=== PATIENT | male | born 1950 | race Caucasian/White ===

== ENCOUNTER 2017-01-24 16:35 | Inpatient (IN) | payer MEDICARE, MEDICAID ==
[~2017-01-24] VITALS: Ht 175.3 cm; Wt 122.0 kg
[~2017-01-24 16:35] MED LIST: ATOR20TA PO; DILT360T13 PO; FLUT1DIS3 INH; FURO-145 PO; VALP100V3 IV
--- NOTE | 2017-01-24 16:40 | NUR ---
BIB [facility] FROM HOME, ON & OFF CHEST PAIN SINCE YESTERDAY, [facility] PT AAOX3. COMPLAINS OF NON RADIATING CHEST PAIN AND ABDOMINAL PAIN. SEEN BY MD FOR EVAL. SAFETY AND COMFORT MEASURES PROVIDED. WILL MONITOR.
[2017-01-24] MEDS ORDERED: ONDANSETRON HCL/PF 4 MG/2 ML VIAL ONE (16:49)
[2017-01-24] MEDS ORDERED: NITROGLYCERIN 0.4 MG/TAB BOTTLE ONE (16:49)
[2017-01-24] MEDS ORDERED: MORPHINE SULFATE INJ 4 MG/ML DISP.SYRIN ONE (16:49)
[2017-01-24] MEDS ORDERED: ASPIRIN 81 MG TAB.CHEW ONE (16:49)
[2017-01-24] MEDS ORDERED: NITROGLYCERIN 0.4 MG/TAB BOTTLE SL ONE (17:00)
[2017-01-24] MEDS ORDERED: ASPIRIN 81 MG TAB.CHEW PO ONE (17:00)
[2017-01-24] MEDS ORDERED: ONDANSETRON HCL/PF 4 MG/2 ML VIAL IVP ONE (17:00)
[2017-01-24] MEDS ORDERED: MORPHINE SULFATE INJ 2 MG/ML DISP.SYRIN IV ONE (17:00)
--- NOTE | 2017-01-24 17:06 | NUR ---
IV ACCESS STARTED. BLOOD DRAWN FOR LABS. PT MEDICATED ORDERE.
[2017-01-24 17:07] LABS: BASOPHILS % (AUTO) 0.4 % (0.0-2.0); EOSINOPHILS # (AUTO) 0.1 /CMM (0.0-0.7); EOSINOPHILS % (AUTO) 1.3 % (0.0-6.0); HEMATOCRIT 44 % (39-51); HEMOGLOBIN 14.5 g/dL (13.5-17.5); LYMPHOCYTES # (AUTO) 1.6 /CMM (0.8-4.8); LYMPHOCYTES % (AUTO) 15.8 % (20.0-44.0); MEAN CORPUSCULAR HEMOGLOBIN 29 PG (26.0-33.0); MEAN CORPUSCULAR HGB CONC 33 g/dl (31.0-36.0); MEAN CORPUSCULAR VOLUME 89 fL (80-96); MONOCYTES # (AUTO) 0.8 /CMM (0.1-1.30); MONOCYTES % (AUTO) 7.7 % (2.0-12.0); NEUTROPHILS # (AUTO) 7.4 /CMM (1.8-8.9); NEUTROPHILS % (AUTO) 74.8 % (43.0-81.0); PLATELET COUNT (AUTO) 249 /CMM (150-450); RDW COEFFICIENT OF VARIATION 12.6 (11.5-15.0); RED BLOOD CELL COUNT(AUTO) 5.01 MIL/uL (4.5-6.0); WHITE BLOOD COUNT (AUTO) 9.9 K/uL (4.3-11.0)
[2017-01-24 17:20] LABS: CALCIUM, SERUM 8.7 mg/dL (8.5-10.1); CARBON DIOXIDE 33 mmol/L (21-32); CHLORIDE 107 mmol/L (98-107); GFR 75 mL/min (>60); GLUCOSE 155 mg/dL (74-106); POTASSIUM 4.3 mmol/L (3.5-5.1); SODIUM SERUM 143 mmol/L (136-145); UREA NITROGEN, BLOOD 20 mg/dL (7-18)
[2017-01-24 17:30] LABS: INR 1.05 (0.87-1.13); TROPONIN I < 0.017 ng/mL (0.00-0.056)
[2017-01-24] MEDS ORDERED: METOPROLOL TARTRATE INJ 5 MG/5 ML AMPUL IV ONE (17:30)
[2017-01-24] MEDS ORDERED: METOPROLOL TARTRATE INJ 5 MG/5 ML AMPUL ONE (17:31)
[2017-01-24 17:33] LABS: ALANINE AMINOTRANSFERASE 19 U/L (12-78); ALBUMIN 3.5 g/dL (3.4-5.0); ALKALINE PHOSPHATASE 112 U/L (46-116); ASPARTATE AMINOTRANSFERASE 12 U/L (15-37); B-TYPE NATRIURETIC PEPTIDE 102 PG/ML (0-125); BILIRUBIN,DIRECT 0.1 mg/dL (0.0-0.2); BILIRUBIN,TOTAL 0.5 mg/dL (0.2-1.0); TOTAL PROTEIN, SERUM 6.7 g/dL (6.4-8.2)
[2017-01-24] MEDS ORDERED: IV SET PRIMARY 1 EA INFUS.SET MC ONE (17:34)
[2017-01-24] MEDS ORDERED: IV NS 0.9% 500 ML IV ONE (17:34)
--- NOTE | 2017-01-24 17:40 | NUR ---
Patient is resting comfortably in bed with eyes closed. Easily aroused. VSS
[2017-01-24] MEDS ORDERED: IV NS 0.9% 1,000 ML BAG IV ONE (18:00)
--- NOTE | 2017-01-24 18:20 | NUR ---
REPORT GIVEN TO GIANLUCA SHRESTHA FOR TELE RM 113-1
--- NOTE | 2017-01-24 18:32 | NUR ---
RN EVE NOTES RECEIVED REPORT FROM ER NURSE FLORIN.
--- NOTE | 2017-01-24 18:42 | NUR ---
DR. MYERS AT FOR EVAL.
[2017-01-24] MEDS ORDERED: VALPROATE 500 MG/5 ML VIAL IV SCH (19:00)
[2017-01-24] MEDS ORDERED: MENT1LOZ MM (19:06)
[2017-01-24] MEDS ORDERED: DILT-46 PO (19:06)
[2017-01-24] MEDS ORDERED: ALFU10TA10 PO (19:06)
[2017-01-24] MEDS ORDERED: LEVA0.6320 IH (19:06)
[2017-01-24] MEDS ORDERED: DOCU250C75 PO (19:06)
[2017-01-24] MEDS ORDERED: ASPI81TA2 PO (19:06)
[2017-01-24] MEDS ORDERED: QUET50TA PO (19:06)
[2017-01-24] MEDS ORDERED: GABA-534 PO (19:06)
[2017-01-24] MEDS ORDERED: KETO15CR TP (19:06)
[2017-01-24] MEDS ORDERED: CYCL5TAB PO (19:07)
--- NOTE | 2017-01-24 19:14 | NUR ---
TRANSFERRED PT TO TELE 1
--- NOTE | 2017-01-24 19:15 | NUR ---
RN- PT CAME IN FROM ER W/ DX OF CHEST PAIN. CO SHARP MIDSTERNAL CHEST PAIN UPON ER ADMISSION. DENIES CP AT THIS TIME. DENIES SOB. ON MONITOR W/ ST- 103. O2 SAT 93 ON RA. PT REFUSED O2 NC. INFORMED PT THAT DUE TO HIS DX, HE NEEDS OXYGEN TO PROPERLY PERFUSE HIS HEART. PT STILL REFUSED. ORIENTED PT TO UNIT. CALL LIGHT W/ IN REACH. BED LOW AND IN LOCKED POSITION. WILL MONITOR PT ACCORDINGLY.
[2017-01-24 20:00] VITALS: BP 126/87
[2017-01-24 20:19] LABS: MAGNESIUM 1.7 mg/dL (1.8-2.4); PHOSPHORUS 3.5 mg/dL (2.5-4.9)
[2017-01-24 20:29] LABS: THYROID STIMULATING HORMONE 1.031 uIU/mL (0.358-3.74)
--- NOTE | 2017-01-24 20:30 | NUR ---
EVE/RN- CALLED DR TABARES AND FOLLOWED UP ON ADMITTING ORDERS. PER HOSPITALIST HE IS ON THE ROAD AND WILL DO THE ADMITTING ORDERS SOON HE GETS HOME. WILL WAIT FOR ORDERS.
[2017-01-24 21:00] VITALS: BP 126/87
[2017-01-24] MEDS: ENOXAPARIN SODIUM 40 MG/0.4 ML DISP.SYRIN SQ SCH (21:26)
--- NOTE | 2017-01-24 22:00 | NUR ---
EVE/RN- CALLED [facility]. SPOKE WITH DR SAEED. EXPLAINED THE NEED FOR ADMITTING ORDERS. STATED THAT HE WILL CONTACT DR TABARES AND FOLLOW UP ON THE ORDERS. WILL WAIT FOR ADMITTING ORDERS.
[2017-01-25] VITALS: BP 113/60
--- NOTE | 2017-01-25 00:28 | NUR ---
EVE/RN- FOLLOWED UP ADMITTING ORDERS W/ [facility]. SPOKE WITH DR SAEED. MD STATED THAT HE HAS INFORMED DR TABARES ABOUT ADMITTING ORDERS AND THAT HE IS IN THE PROCESS OF PUTTING IN ORDERS AT THIS TIME. AWAITING ADMITTING ORDERS. INFORMED ABOUT PT'S CO CHEST PAIN OF 10/10 SHARP MIDSTERNAL AND NON RADIATING. NO CHANGES IN VITAL SIGNS NOTED. ON MONITOR PT IS [id number]. NON DIAPHORETIC. ORDERED TO GIVE MORPHINE 2 MG IVP Q 6 HRS PRN FOR PAIN. WILL MEDICATE ORDERED.
[2017-01-25] MEDS ORDERED: MORPHINE SULFATE INJ 2 MG/ML DISP.SYRIN IV PRN (00:30)
[2017-01-25] MEDS ORDERED: MORPHINE SULFATE INJ 2 MG/ML DISP.SYRIN ONE (00:34)
--- NOTE | 2017-01-25 00:46 | NUR ---
EVE/RN- PT REFUSED MORPHINE MEDICATION. SPOKE WITH DR CHRISTOPHE MD ORDERED TO GIVE NORCO 1 TAB 5/325MG Q 6 HRS PRN FOR PAIN. ORDERS CARRIED OUT.
[2017-01-25] MEDS ORDERED: HYDROCODONE/APAP 5/325MG 1 EACH TABLET ONE (01:25)
[2017-01-25] MEDS: HYDROCODONE/APAP 5/325MG 1 EACH TABLET PO PRN ×3 (01:30→16:11)
[2017-01-25 04:00] VITALS: BP 120/87
[2017-01-25 06:56] LABS: EOSINOPHILS # (AUTO) 0.1 /CMM (0.0-0.7); EOSINOPHILS % (AUTO) 1.7 % (0.0-6.0); HEMATOCRIT 43 % (39-51); HEMOGLOBIN 14.4 g/dL (13.5-17.5); LYMPHOCYTES % (AUTO) 24.9 % (20.0-44.0); MEAN CORPUSCULAR HEMOGLOBIN 30 PG (26.0-33.0); MEAN CORPUSCULAR HGB CONC 34 g/dl (31.0-36.0); MEAN CORPUSCULAR VOLUME 89 fL (80-96); MONOCYTES # (AUTO) 0.9 /CMM (0.1-1.30); MONOCYTES % (AUTO) 11.3 % (2.0-12.0); NEUTROPHILS # (AUTO) 5.1 /CMM (1.8-8.9); NEUTROPHILS % (AUTO) 62.1 % (43.0-81.0); PLATELET COUNT (AUTO) 244 /CMM (150-450); RDW COEFFICIENT OF VARIATION 13.4 (11.5-15.0); RED BLOOD CELL COUNT(AUTO) 4.82 MIL/uL (4.5-6.0); WHITE BLOOD COUNT (AUTO) 8.1 K/uL (4.3-11.0)
[2017-01-25 07:42] LABS: ALANINE AMINOTRANSFERASE 22 U/L (12-78); ALBUMIN 3.3 g/dL (3.4-5.0); ALKALINE PHOSPHATASE 113 U/L (46-116); ASPARTATE AMINOTRANSFERASE 8 U/L (15-37); BILIRUBIN,TOTAL 0.5 mg/dL (0.2-1.0); CALCIUM, SERUM 8.6 mg/dL (8.5-10.1); CARBON DIOXIDE 31 mmol/L (21-32); CHLORIDE 106 mmol/L (98-107); CREATININE 0.7 mg/dL (0.6-1.3); GFR 113 mL/min (>60); GLUCOSE 101 mg/dL (74-106); MAGNESIUM 1.6 mg/dL (1.8-2.4); PHOSPHORUS 3.7 mg/dL (2.5-4.9); POTASSIUM 4.3 mmol/L (3.5-5.1); SODIUM SERUM 143 mmol/L (136-145); TOTAL PROTEIN, SERUM 6.9 g/dL (6.4-8.2); UREA NITROGEN, BLOOD 23 mg/dL (7-18)
[2017-01-25 07:43] LABS: TROPONIN I < 0.017 ng/mL (0.00-0.056)
--- NOTE | 2017-01-25 07:48 | NUR ---
RN INITIAL NOTE, PT RECEIVED SITTING IN WHEELCHAIR. AWAKE, ALERT AND ORIENTED. ABLE TO MAKE NEEDS KNOWN. NO S/S OF RESPIRATORY DISTRESS OR SOB. RESPIRATIONS EVEN AND UNLABORED. SINUS TACH0 ON TELE. LEFT AC IV, FLUSHED AND PATENT. DRESSING C/D/I. NO S/S OF PAIN OR DISCOMFORT. SAFETY MEASURES IN PLACE. NO SKIN ISSUES. CALL LIGHT WITHIN REACH. WILL CONTINUE TO MONITOR.
[2017-01-25 08:00] VITALS: BP 133/90
[2017-01-25] MEDS: FLUTICASONE/SALMETEROL DISKUS IH SCH ×2 (08:10→16:11)
[2017-01-25] MEDS: ASPIRIN 81 MG TAB.CHEW PO SCH (08:11)
[2017-01-25] MEDS: ATORVASTATIN 10 MG TABLET PO SCH (08:11)
[2017-01-25] MEDS: PANTOPRAZOLE 40 MG TABLET.DR PO SCH (08:11)
[2017-01-25] MEDS: DILTIAZEM HCL CD 120 MG PO SCH (08:11)
[2017-01-25] MEDS: VALPROATE 500 MG in IV D5W 100 ML IV SCH ×2 (08:14→16:09)
[2017-01-25] MEDS ORDERED: IV SET PRIMARY PUMP SET 1 EA INFUS.SET MC ONE ×3 (08:56→10:52)
--- NOTE | 2017-01-25 09:00 | NUR ---
RN NOTE PT REQUESTING EYE DROPS AND TO SPEAK TO MULTI PUNCH OPERATOR REGARDING DISCUSSING PLACEMENT. ORDERS PLACED.
[2017-01-25] MEDS: POLYVINYL ALCOHOL 15 ML BOTTLE EACHEYE PRN (09:14)
--- NOTE | 2017-01-25 10:55 | NUR ---
SW received a call from pt. stating he needs to speak to SW regarding placement. Per ED report, pt. is a 66 year old male who came to [facility] complaining of chest pain. [facility] without [facility]. JESUS and major case detective Blaze met with pt. bedside. Pt. was sitting in his wheelchair bedside and watching TV. Pt. appeared anxious and evasive with providing information to JESUS and Blaze. SW inquired with pt. regarding where he resides. Pt. was unable to provide a definite answer. Pt. stated he lives at a [facility] and was not able to state the name or address of the board and [facility]. Pt. stated "in [place] somewhere." Pt. states he receives approximately $1000/month in SSI benefits. Pt. informed SW he went to the [place] this morning complaining of chest pain and wanting some pain medication. However, the hospital refused to give pt. pain meds and pt. left the hospital stating, " I will go to another hospital." Pt. then came to [facility]. Pt. became agitated with JESUS and major case detective during the assessment and stated," go away, you are asking me too many questions, I need my pain meds." JESUS and Blaze spoke to FADY Guillen and updated her regarding SW's conversation with pt. JESUS gave Mindy phone number to [employer] office to give to pt. per his request. JESUS and Blaze were unable to discuss discharge plan with pt. due to his aggressive behavior. JESUS requested FADY Guillen to place an order for psych consult.
[2017-01-25] MEDS: Magnesium 1GM/D5W 100ML PREMIX 100 ML IV SCH ×2 (10:56→12:03)
--- NOTE | 2017-01-25 11:00 | NUR ---
EVE RN NOTE SEEN BY DR MYERS AWARE THAT ON TELE MONITOR STILL ST 105-110
--- NOTE | 2017-01-25 11:06 | NUR ---
EVE RN NOTE AUTO RENTAL CLERK AND INSPECTOR BICYCLE AT BEDSIDE TALKING TO PATIENT , PHONE NUMBER OF SOCIAL SECURITY GIVEN , REQUESTED BY PATIENT, ASSISTED TO DIAL
--- NOTE | 2017-01-25 12:45 | NUR ---
ABG RESULTS REPORTED TO WITH NO NEW ORDERS.
--- NOTE | 2017-01-25 13:19 | NUR ---
MS RN NOTE PER DR ROSA ORDER ABG DONE BT RT , PATIENT UP ON W\C, NOT IN ACUTE DISTRESS NO SOB NOTE, CALL LIGHT WITHIN REACH , ALL NEEDS ATTENDED WILL CONT TO MONITOR
[2017-01-25 13:21] LABS: ABG BASE EXCESS 0.3 mmol/L; ABG OXYGEN SATURATION 91.3 % (92.0-98.5); ABG PCO2 46.1 mmHg (35.0-45.0); ABG PO2 63.6 mmHg (75.0-100.0); ABG TOTAL HEMOGLOBIN 15.2 G/dL (13.5-18.0); AaDO2 30.9 mmHg; COHb 1.2 % (0.5-1.5); MetHb 0.7 % (0.0-1.5); O2Hb 89.6 % (94.0-97.0); SITE, ABG Right Brachial; VENT MODE, BG ROOM AIR
--- NOTE | 2017-01-25 13:30 | NUR ---
FADY NOTE PSYCH EVAL WITH DR TREVA JONES, GAMALIEL TABARES NOTIFIED. Addendum: 01/25/17 at 1413 by ROSY LAN RN GAMALIEL KAYE DNP AWARE OF ABG RESULT, CALLED TO [facility] NOTIFIED ABOUT ORDER, FACE SHEET FAXED TO [facility] REQUESTED
[2017-01-25] MEDS ORDERED: SALINE NASAL SPRAY 0.65% 1 BOTTLE BOTTLE NS PRN (14:30)
[2017-01-25] MEDS: IPRATROPIUM NEB FS 0.5 MG/2.5 ML AMPUL.NEB NEB SCH ×3 (14:38→23:30)
--- NOTE | 2017-01-25 14:42 | NUR ---
MS RN NOTE PN BREATHING TX DONE BY RT ,NOT IN ACUTE DISTRESS
[2017-01-25 16:00] VITALS: BP 134/89
[2017-01-25] MEDS: methylPREDNISolone SOD SUCC 125 MG/2ML VIAL IV SCH (16:10)
[2017-01-25] MEDS: GABAPENTIN 300 MG CAPSULE PO SCH (16:10)
[2017-01-25] MEDS ORDERED: PNEUMOCOCCAL 23-VAL P-SAC VAC 0.5 ML VIAL SQ ONE (17:00)
--- NOTE | 2017-01-25 17:15 | NUR ---
RN NOTE DR TILLEY AT BEDSIDE PT REFUSED PSYCHIATRIC CONSULT
--- NOTE | 2017-01-25 18:58 | NUR ---
MS RN NOTE PATIENT UP ON CHAIR, NOT IN ACUTE DISTRESS, WILL CONT TO MONITOR CLOSELY
--- NOTE | 2017-01-25 19:57 | NUR ---
FILLER OPERATOR RECEIVED PT TO ROOM#113 PT A/OX4 MILDLY ANXIOUS. PT SITTING IN WHEELCHAIR WITHIN ROOM, CONVERSING WITH STAFF. VSS BP AT 140/87 TEMP OF 97.6 HR 117 BPM, RR OF 20. PT DENIES CHEST PAIN AT THIS TIME. PER REPORT PT WAS UNCOOPERATIVE DURING PSYCHE CONSULT. PT COOPERATIVE WITH STAFF AT THIS TIME. PT WOULD LIKE MEDICATION TO HELP HIM SLEEP PT C/O INSOMNIA PT HAS SEROQUEL ORDERED AT 2200.
[2017-01-25 20:00] VITALS: BP 140/87
[2017-01-25] MEDS ORDERED: MAG HYDROX/AL HYDROX/SIMETH 30 ML UDC ONE (20:42)
[2017-01-25] MEDS: QUETIAPINE FUMARATE 25 MG TABLET PO SCH (20:52)
[2017-01-25] MEDS: ENOXAPARIN SODIUM 40 MG/0.4 ML DISP.SYRIN SQ SCH (20:54)
--- NOTE | 2017-01-25 20:56 | NUR ---
RN DF PT REQUESTING TO HAVE SEROQUEL PO NOW PT DOES NOT WANT TO WAIT AND IS GETTING MORE AGITATED. ADMIN SEROQUEL 50MG PO AT 2054. PT C/O UPSET STOMACH AND PROVIDED WITH MAALOX PO. VSS. NAD NOTED.
[2017-01-25] MEDS ORDERED: MAG HYDROX/AL HYDROX/SIMETH 30 ML UDC PO PRN (21:00)
--- NOTE | 2017-01-25 23:35 | NUR ---
PT REFUSED TX AT THIS TIME. NO SOB OR DISTRESS AT THIS TIME. PT SITTING UP ON CHAIR.
[2017-01-26] MEDS: IPRATROPIUM NEB FS 0.5 MG/2.5 ML AMPUL.NEB NEB SCH ×6 (03:30→23:00)
--- NOTE | 2017-01-26 03:48 | NUR ---
RT PT REFUSED TX. PT WANTS TO CONTINUE SLEEPING AT THIS TIME . NO SOB OR DISTRESS NOTED. RN MADE AWARE.
[2017-01-26 04:00] VITALS: BP 157/94
--- NOTE | 2017-01-26 04:17 | NUR ---
RN DF PT SLEEPING AWAKENS TO EXTERNAL STIMULI, DENIES CHEST PAIN.VSS,NAD NOTED. NO COMPLAINTS AT THIS TIME.
--- NOTE | 2017-01-26 05:55 | NUR ---
RN DF PT REQUESTING BREATHING TREATMENT I NOTIFIED MICHELLE RT. PT NOT IN ANY DISTRESS AT THIS TIME.
--- NOTE | 2017-01-26 07:30 | NUR ---
MS RN NOTES RECEIVED PATIENT AWAKE SITTING IN HIS WHEELCHAIR IN FRONT OF THE NURSES STATION, AOX4, BREATHING EVEN AND UNLABORED, DENIES ANY PAIN AT THIS TIME. PER REPORT PATIENT REFUSED PSYCH CONSULT. WILL CONTINUE TO MONITOR AND POC.
[2017-01-26 08:00] VITALS: BP 159/86
--- NOTE | 2017-01-26 08:00 | NUR ---
MS RN NOTES PATIENT REFUSED TO EAT HIS BREAKFAST, DEMANDING TO HAVE LOPES , SAUSAGES, EGGS, CHEESEBURGER, HASH BROWN AND COFFEE. PATIENT ATTEMPTED TO GO TO [facility]. I EXPLAINED TO THE PATIENT THE RISK OF NOT FOLLOWING HIS DIET BUT PATIENT STARTED YELLING. HAYDEN PRIDE SPOKE TO THE PATIENT BUT HE'S STILL NON COMPLAINT WITH HIS TREATMENT PLAN. WILL CONTINUE TO MONITOR.
[2017-01-26 08:18] LABS: CALCIUM, SERUM 9.3 mg/dL (8.5-10.1); CREATININE 0.7 mg/dL (0.6-1.3); MAGNESIUM 1.8 mg/dL (1.8-2.4); POTASSIUM 4.8 mmol/L (3.5-5.1)
[2017-01-26 09:29] LABS: VIT D, 25-HYDROXY 10.8 ng/mL (30.0-100.0)
--- NOTE | 2017-01-26 09:50 | NUR ---
MS RN NOTES DR. TABARES MADE AWARE, PT REFUSED HIS DIET. WITH NEW ORDERS MADE AND CARRIED OUT.
[2017-01-26] MEDS: methylPREDNISolone SOD SUCC 125 MG/2ML VIAL IV SCH ×2 (09:52→16:46)
[2017-01-26] MEDS: ATORVASTATIN 10 MG TABLET PO SCH (09:52)
[2017-01-26] MEDS: GABAPENTIN 300 MG CAPSULE PO SCH ×3 (09:52→16:46)
[2017-01-26] MEDS: PANTOPRAZOLE 40 MG TABLET.DR PO SCH (09:52)
[2017-01-26] MEDS: ASPIRIN 81 MG TAB.CHEW PO SCH (09:52)
[2017-01-26] MEDS: FLUTICASONE/SALMETEROL DISKUS IH SCH ×2 (09:54→16:47)
[2017-01-26] MEDS: DILTIAZEM HCL CD 120 MG PO SCH (10:01)
[2017-01-26] MEDS: VALPROATE 500 MG in IV D5W 100 ML IV SCH ×2 (10:06→16:50)
[2017-01-26 16:00] VITALS: BP 134/75
[2017-01-26] MEDS: HYDROCODONE/APAP 5/325MG 1 EACH TABLET PO PRN (16:47)
--- NOTE | 2017-01-26 17:15 | NUR ---
MS RN NOTES S/B DR. TABARES WITH NEW ORDERS MADE. PATIENT TO BE DC TONIGHT. FABIANO MENSAH MADE AWARE. MAYKEL SPOKE WITH THE PATIENT, HOWEVER PATIENT IS NON COMPLAINT HE REFUSED TO COOPERATE WITH THE FABIANO MENSAH, IF HE IS A HOMELESS OR LIVES IN A BOARD AND CARE. PATIENT IS ALERT AND ORIENTED AND ABLE TO MAKE NEEDS KNOWN.
[2017-01-26] MEDS ORDERED: ACET-907 PO (18:13)
[2017-01-26] MEDS ORDERED: PANT40TA2 PO (18:13)
--- NOTE | 2017-01-26 18:49 | NUR ---
MS RN NOTES PATIENT VERBALIZED THAT HE'S GOING BACK TO [facility]. HAYDEN PRIDE PAGED DR. TABARES REGARDING THE NARCOTIC PRESCRIPTION. STILL AWAITING FOR HIS CALL BACK.
--- NOTE | 2017-01-26 19:00 | NUR ---
MS RN NOTES ENDORSED TO INCOMING SHIFT FOR CONTINUITY OF CARE.
--- NOTE | 2017-01-26 19:14 | NUR ---
MS-1/ASSOCIATE CONSULTING ENGINEER PER DR. TABARES HOLD DISCHARGE FOR TONIGHT. DISCHARGE IN AM. WILL CONTINUE TO MONITOR.
[2017-01-26 20:00] VITALS: BP 136/84
[2017-01-26] MEDS: ENOXAPARIN SODIUM 40 MG/0.4 ML DISP.SYRIN SQ SCH (21:19)
[2017-01-26] MEDS: QUETIAPINE FUMARATE 25 MG TABLET PO SCH (21:20)
--- NOTE | 2017-01-26 23:00 | NUR ---
PATIENT REFUSED TX, NO RESP DISTRESS NOTED, RN NOTIFIED
[2017-01-27] MEDS: IPRATROPIUM NEB FS 0.5 MG/2.5 ML AMPUL.NEB NEB SCH ×6 (03:30→23:30)
[2017-01-27 04:00] VITALS: BP 107/56
[2017-01-27 04:02] VITALS: BP 107/56
--- NOTE | 2017-01-27 04:14 | NUR ---
PATIENT REFUSED TX, NO RESP DISTRESS NOTED, RN NOTIFIED
--- NOTE | 2017-01-27 05:46 | NUR ---
MS-1/POLISHER BALANCE SCREWHEAD PT REFUSING AM LABS. RISKS AND BENEFITS EXPLAINED.
[2017-01-27 08:00] VITALS: BP 129/77
--- NOTE | 2017-01-27 08:00 | NUR ---
MS1/RN AM SHIFT INITIAL NOTES RECEIVED PT AWAKE SITTING IN BED. NO ACUTE CHANGE OF CONDITION NOTED, PT A/O X 3, DENIES ANY SYMPTOMS. ON ROOM AIR, SATURATING @ 95%, NOTED WITH DIMINISHED SOUNDS. IV SITE FLUSHED, PATENT, WITH NO S/S OF INFECTION, SL. PT IS COMFORTABLE. SCHEDULED AM MEDS TO BE GIVEN. CL WITHIN REACHED AND SAFETY MAINTAINED. ON GOING MONITORING.
[2017-01-27] MEDS: FLUTICASONE/SALMETEROL DISKUS IH SCH (08:31)
[2017-01-27] MEDS: GABAPENTIN 300 MG CAPSULE PO SCH ×3 (08:31→16:23)
[2017-01-27] MEDS: PANTOPRAZOLE 40 MG TABLET.DR PO SCH (08:31)
[2017-01-27] MEDS: ASPIRIN 81 MG TAB.CHEW PO SCH (08:31)
[2017-01-27] MEDS: DILTIAZEM HCL CD 120 MG PO SCH (08:32)
[2017-01-27] MEDS: methylPREDNISolone SOD SUCC 125 MG/2ML VIAL IV SCH ×2 (08:32→16:23)
[2017-01-27] MEDS: ATORVASTATIN 10 MG TABLET PO SCH (08:33)
[2017-01-27] MEDS: DIVALPROEX SODIUM 500 MG TABLET.DR PO SCH ×2 (09:06→21:23)
--- NOTE | 2017-01-27 11:40 | NUR ---
TELE1/RN ROUNDS - DR. ROSA PT SEEN & EXAMINED BY DR. ROSA, WITH ORDERS TO UPGRADE PT TO TELEMETRY STATUS. ORDER NOTED AND CARRIED OUT.
[2017-01-27 11:46] LABS: CALCIUM, SERUM 9.2 mg/dL (8.5-10.1); CREATININE 0.7 mg/dL (0.6-1.3); POTASSIUM 4.5 mmol/L (3.5-5.1)
[2017-01-27] MEDS: MENTHOL/CETYLPYRD (CEPACOL) 1 LOZ LOZENGE PO PRN (12:16)
[2017-01-27] MEDS: HYDROCODONE/APAP 5/325MG 1 EACH TABLET PO PRN ×2 (15:29→23:32)
--- NOTE | 2017-01-27 15:38 | NUR ---
TELE1/RN REFUSED VITAL SIGNS PT REFUSED TO HAVE VITAL SIGNS TAKEN. PT ON TELE WITH SINUS RHYTHM, HR 100. NO ACUTE CHANGE OF CONDITION.
[2017-01-27] MEDS ORDERED: MAG HYDROX/AL HYDROX/SIMETH 30 ML UDC PO PRN (18:00)
--- NOTE | 2017-01-27 18:00 | NUR ---
TELE1/RN AFTERNOON ROUNDS NO ACUTE CHANGE OF CONDITION. MONITORING CONTINUED.
--- NOTE | 2017-01-27 19:20 | NUR ---
TELE1/RN AM SHIFT END NOTES NO ACUTE CHANGE OF CONDITION NOTED DURING THE SHIFT. ALL NEEDS MET. ENDORSED TO PM NURSE TO CONTINUE CARE. CL WITHIN REACHED AND SAFETY MAINTAINED.
--- NOTE | 2017-01-27 19:30 | NUR ---
DISTRICT SALES MANAGER INITIAL NOTE RECEIVED REPORT FROM SHAUNA SHRESTHA. PT UP IN WHEELCHAIR. A/A/O X3. LUNG SOUNDS DIMINISHED. BOWEL SOUNDS PRESENT. IV PATENT AND INTACT. PT HAS MANY REQUEST, COFFEE, DIET SODAS, ETC. NEEDS WILL BE MET. CALL LIGHT WITHIN REACH. WILL CONTINUE TO MONITOR.
[2017-01-27 20:00] VITALS: BP 138/74
[2017-01-27] MEDS: ENOXAPARIN SODIUM 40 MG/0.4 ML DISP.SYRIN SQ SCH (21:23)
[2017-01-27] MEDS: QUETIAPINE FUMARATE 25 MG TABLET PO SCH (21:23)
[2017-01-28] VITALS: BP 155/89
[2017-01-28] MEDS: IPRATROPIUM NEB FS 0.5 MG/2.5 ML AMPUL.NEB NEB SCH ×6 (03:02→23:30)
[2017-01-28 08:00] VITALS: BP_SYST 140; BP_DIAS 67; BP_DIAS 71
[2017-01-28] MEDS: GABAPENTIN 300 MG CAPSULE PO SCH ×3 (09:12→16:55)
[2017-01-28] MEDS: ATORVASTATIN 10 MG TABLET PO SCH (09:12)
[2017-01-28] MEDS: DILTIAZEM HCL CD 120 MG PO SCH (09:12)
[2017-01-28] MEDS: methylPREDNISolone SOD SUCC 125 MG/2ML VIAL IV SCH ×2 (09:13→16:55)
[2017-01-28] MEDS: ASPIRIN 81 MG TAB.CHEW PO SCH (09:13)
[2017-01-28] MEDS: PANTOPRAZOLE 40 MG TABLET.DR PO SCH (09:13)
[2017-01-28] MEDS: DIVALPROEX SODIUM 500 MG TABLET.DR PO SCH ×2 (09:13→21:00)
[2017-01-28 12:00] VITALS: BP 163/82
[2017-01-28 16:00] VITALS: BP 139/82
--- NOTE | 2017-01-28 19:30 | NUR ---
RN INITIAL NOTES RECEIVED PT AWAKE SITTING ON A CHAIR, A/O X3. ON ROOM AIR SATURATING WELL, NO S/S OF RESP DISTRESS. CURRENTLY ST ON THE MONITOR, HR 110'S. PT IS CONTINENT, ABLE TO AMBULATE WITH A STEADY GAIT TO RESTROOM NEEDED. LEFT AC 18G FLUSHED AND PATENT, NO S/S OF INFILTRATION/INFECTION, DRESSING CDI. BED LOW AND LOCKED, SIDERAILS UP, CALL LIGHT WITHIN REACH. WILL MONITOR
[2017-01-28 20:00] VITALS: BP 153/95
[2017-01-28] MEDS: ENOXAPARIN SODIUM 40 MG/0.4 ML DISP.SYRIN SQ SCH (21:00)
[2017-01-28] MEDS: QUETIAPINE FUMARATE 25 MG TABLET PO SCH (21:00)
[2017-01-28] MEDS: HYDROCODONE/APAP 5/325MG 1 EACH TABLET PO PRN (21:01)
[2017-01-29] VITALS: BP 157/85
[2017-01-29] MEDS: IPRATROPIUM NEB FS 0.5 MG/2.5 ML AMPUL.NEB NEB SCH ×3 (03:30→11:10)
[2017-01-29 04:00] VITALS: BP 122/66
--- NOTE | 2017-01-29 06:30 | NUR ---
RN CLOSING NOTES PT REMAINS STABLE OF THE MOMENT. ALL DUE MEDS GIVEN. AM CARE PROVIDED. WILL ENDORSE TO AM RN
[2017-01-29 07:49] LABS: CALCIUM, SERUM 8.6 mg/dL (8.5-10.1); CREATININE 0.8 mg/dL (0.6-1.3); POTASSIUM 3.7 mmol/L (3.5-5.1)
[2017-01-29 08:00] VITALS: BP_SYST 103; BP_SYST 152; BP_DIAS 65; BP_DIAS 85
--- NOTE | 2017-01-29 08:00 | NUR ---
RN INITIAL NOTE PT RECEIVED SITTING IN WHEELCHAIR, AWAKE, ALERT, AND ORIENTED. ABLE TO MAKE NEEDS KNOWN. NO S/S OF RESPIRATORY DISTRESS OR SOB. RESPIRATIONS EVEN AND UNLABORED. SR ON TELE. SKIN WARM AND DRY TO TOUCH. NO S/S OF PAIN OR DISCOMFORT. IV SITE C/D/I. FLUSHED AND PATENT. SAFETY MEASURES IN PLACE. BED LOCKED, IN LOW POSITION. SIDE RAILS UP, BED ALARM ON. CALL LIGHT WITHIN REACH. WILL CONTINUE TO MONITOR
[2017-01-29] MEDS: ATORVASTATIN 10 MG TABLET PO SCH (08:28)
[2017-01-29] MEDS: GABAPENTIN 300 MG CAPSULE PO SCH ×2 (08:28→12:19)
[2017-01-29] MEDS: DIVALPROEX SODIUM 500 MG TABLET.DR PO SCH (08:28)
[2017-01-29] MEDS: ASPIRIN 81 MG TAB.CHEW PO SCH (08:29)
[2017-01-29] MEDS: methylPREDNISolone SOD SUCC 125 MG/2ML VIAL IV SCH (08:29)
[2017-01-29] MEDS: PANTOPRAZOLE 40 MG TABLET.DR PO SCH (08:29)
[2017-01-29] MEDS: POLYVINYL ALCOHOL 15 ML BOTTLE EACHEYE PRN (08:29)
[2017-01-29] MEDS: MENTHOL/CETYLPYRD (CEPACOL) 1 LOZ LOZENGE PO PRN (08:30)
[2017-01-29] MEDS: DILTIAZEM HCL CD 120 MG PO SCH (08:32)
[2017-01-29 10:15] LABS: *SPE A/G RATIO 1.4 (0.7-1.7); *SPE ALBUMIN 3.6 g/dL (2.9-4.4); *SPE ALPHA-1-GLOBULIN 0.2 g/dL (0.0-0.4); *SPE ALPHA-2-GLOBULIN 0.6 g/dL (0.4-1.0); *SPE GLOBULIN, TOTAL 2.6 g/dL (2.2-3.9); *SPE M-SPIKE Not Observed g/dL (Not Observed); *SPE PROTEIN TOTAL 6.2 g/dL (6.0-8.5); *SPEGAMMA GLOBULIN 0.7 g/dL (0.4-1.8)
[2017-01-29 12:00] VITALS: BP 166/93
[2017-01-29] MEDS: HYDROCODONE/APAP 5/325MG 1 EACH TABLET PO PRN (12:19)
--- NOTE | 2017-01-29 14:14 | NUR ---
SW and showcase maker met with pt. bedside to discuss discharge plan. Pt. informed JESUS and FABIANO Thakur he wants to be discharged to see [facility] doctor [facility]. Pt. declined residential placement. Pt. was given the following resources: [facility], [facility], Homeless Resource Directory, Drop-in centers and shelters, Hot meals and lunch sacks information etc. and mental health outpatient facilities. Homeless patient Waiver form was signed by pt. and placed in chart. LONA Monge was informed of pt's discharge plan and given the address to the [place] located at [address] [place] [address]. [place] [id number]. Pt. to be discharged via taxi.
== END 2017-01-29 13:03 | disposition home or self-care (01) | DRG 206 ==
LOC: ER 16:37 → TELE-TD 18:52 → MEDSG1 01-25 12:18 → TELE1 01-27 11:42
PROVIDERS: ADMIT Nurse Practitioner Acute Care; ATTEND Nurse Practitioner Acute Care
DX: M94.0 Chondrocostal junction syndrome [Tietze] (principal); J44.1 Chronic obstructive pulmonary disease with (acute) exacerbation; E11.69 Type 2 diabetes mellitus with other specified complication; I10 Essential (primary) hypertension; E78.5 Hyperlipidemia, unspecified; Z59.0 Homelessness; Z85.118 Personal history of other malignant neoplasm of bronchus and lung; Z87.891 Personal history of nicotine dependence; E66.9 Obesity, unspecified; F41.9 Anxiety disorder, unspecified; Z90.2 Acquired absence of lung [part of]; R09.81 Nasal congestion; G47.33 Obstructive sleep apnea (adult) (pediatric)
CPT/HCPCS: 36415; 36600; 71010-TC; 80048-TC; 80053-TC; 80061-TC; 80076-TC; 82306; 82962-TC; 83735-TC; 83880; 84100-TC; 84155; 84165; 84439-TC; 84443-TC; 84484-TC; 85025-TC; 85730-TC; 87081-TC; 90732; 93307-TC; 94799-TC; A4606; J1650; J2270; J2405; J2930; J3475; J3490; J7040; J7060; Z7610